=== PATIENT | male | born 1975 | race African-American/Black ===

== ENCOUNTER 2021-04-06 15:11 | Emergency (ER) | payer MEDICAID ==
[~2021-04-06] VITALS: Ht 193 cm; Wt 105.0 kg
[2021-04-06 15:57] LABS: BASOPHILS % 0.6 % (0.0-2.0); CLARITY URINE CLEAR (CLEAR); COLOR URINE YELLOW (YELLOW); EOSINOPHILS % 0.7 % (0.0-5.0); HEMATOCRIT. 48.3 % (42.0-52.0); HEMOGLOBIN. 16.6 g/dL (14.0-18.0); KETONES URINE TRACE (NEGATIVE); LEUKOCYTE ESTERASE URINE NEGATIVE (NEGATIVE); LYMPHOCYTES % 32.6 % (20.0-50.0); MEAN CORPUSCULAR HEMOGLOBIN 28.4 pg (28.0-32.0); MEAN CORPUSCULAR VOLUME 82.5 fL (80.0-94.0); MEAN PLATELET VOLUME 8.3 fl (7.4-10.4); MONOCYTES % 5.1 % (2.0-8.0); NITRITE URINE NEGATIVE (NEGATIVE); OCCULT BLOOD URINE NEGATIVE (NEGATIVE); PH URINE 6.5 (4.5-8.0); PLATELET 173 x1000/uL (130-400); PROTEIN URINE TRACE (NEGATIVE); RED BLOOD CELL COUNT 5.86 mill/uL (4.7-6.1); RED CELL DISTRIBUTION WIDTH 13.7 % (11.6-14.6); SPECIFIC GRAVITY URINE 1.017 (1.005-1.030)
[2021-04-06 15:58] LABS: CHLORIDE 105 mEq/L (98-107)
[2021-04-06 16:02] LABS: ETHANOL BLOOD < 10 mg/dL
[2021-04-06 16:28] LABS: *AMPHETAMINES SCREEN URINE NEGATIVE (NEGATIVE); *BARBITURATES SCREEN URINE NEGATIVE (NEGATIVE); *BENZODIAZEPINES SCREEN URINE NEGATIVE (NEGATIVE); *COCAINE SCREEN URINE NEGATIVE (NEGATIVE); METHADONE URINE SCREEN NEGATIVE (NEGATIVE); OPIATES URINE SCREEN NEGATIVE (NEGATIVE); PHENCYCLIDINE URINE SCREEN NEGATIVE (NEGATIVE)
[2021-04-06 16:29] LABS: CANNABINOID URINE SCREEN NEGATIVE (NEGATIVE)
[2021-04-06] MEDS ORDERED: ZYDS20 MT (18:30)
[2021-04-06 19:40] VITALS: BP 124/72
== END 2021-04-06 19:46 ==
LOC: ER 15:11
DX: Z00.00 Encounter for general adult medical examination without abnormal findings (principal); R44.0 Auditory hallucinations
CPT/HCPCS: 36415; 80053; 80305; 80320; 81003; 85025; 99283; G0480